=== PATIENT | female | born 1960 | race Caucasian/White ===

== ENCOUNTER 2021-01-12 08:54 | Emergency (ER) | payer OTHER ==
[~2021-01-12] VITALS: Ht 167.6 cm; Wt 59.9 kg
[2021-01-12 08:55] VITALS: BP_SYST 127
[2021-01-12] MEDS ORDERED: EPIN0.3P3 IM (09:18)
[2021-01-12 09:23] VITALS: BP_SYST 115
== END 2021-01-12 09:23 | disposition home or self-care (01) ==
LOC: SED 08:54
DX: T78.49XA Other allergy, initial encounter (principal); I10 Essential (primary) hypertension; X58.XXXA Exposure to other specified factors, initial encounter
CPT/HCPCS: 99283